=== PATIENT | male | born 1985 | race Two or more races ===

== ENCOUNTER 2024-02-20 23:25 | Emergency (ER) | payer OTHER ==
[~2024-02-20] VITALS: Ht 185.4 cm; Wt 106.6 kg
[2024-02-21] MEDS ORDERED: KETO10TA2 PO (02:36)
== END 2024-02-21 03:12 ==
LOC: ER 23:27
DX: S39.011A Strain of muscle, fascia and tendon of abdomen, initial encounter (principal)